=== PATIENT | female | born 1975 | race Caucasian/White ===

== ENCOUNTER 2021-04-04 22:11 | Emergency (ER) | payer OTHER ==
[~2021-04-04 22:11] MED LIST: ATORVASTATIN CA20 MG PO; BISOPROLOL FUMAR5 MG PO; CLARITIN10 MG PO; METFORMIN HCL500 MG PO; OZEMPIC1 MG/0.75 SC; PERCOCET 5-3251 EACH PO; PRINIVIL10 MG PO; SANTYL15 GM TOP; TOUJEO MAX300 UNIT/1 SC
[2021-04-05] MEDS ORDERED: NORCO 5-325 TA1 EACH PO (00:18)
[2021-05-05] MEDS ORDERED: ALLEGRA ALLERG180 MG PO (09:59)
[2021-05-05] MEDS ORDERED: TRESIBA FL100 UNIT/1 SC (10:00)
[2021-05-11] MEDS ORDERED: PERCOCET 5-3251 EACH PO (07:39)
[2021-05-11] MEDS ORDERED: PRILOSEC20 MG PO (08:41)
== END 2021-04-05 00:28 | disposition home or self-care (01) ==
LOC: FER 22:11
DX: S42.254A Nondisplaced fracture of greater tuberosity of right humerus, initial encounter for closed fracture (principal); I10 Essential (primary) hypertension; E11.9 Type 2 diabetes mellitus without complications; E78.5 Hyperlipidemia, unspecified; F17.200 Nicotine dependence, unspecified, uncomplicated; Z79.899 Other long term (current) drug therapy; Z79.84 Long term (current) use of oral hypoglycemic drugs; W19.XXXA Unspecified fall, initial encounter
CPT/HCPCS: 73030; 73200; J2270

== ENCOUNTER → 2021-05-11 | Day surgery (SDC) | payer OTHER ==
[~2021-05-11] VITALS: Ht 167.6 cm; Wt 145.6 kg
[~2021-05-11] MED LIST changes: +ALLEGRA ALLERG180 MG PO; +NORCO 5-325 TA1 EACH PO; +PRILOSEC20 MG PO; +TRESIBA FL100 UNIT/1 SC
[2021-05-11 08:55] LABS: HGB 11.6 g/dl (12.5-16.0); MCH 26.9 pg (25.0-31.0); MCHC 31.4 g/dL (32.0-36.0); MCV 85.6 fL (78.0-100.0); MPV 10.3 fL (6.0-9.5); RBC 4.32 M/uL (4.20-5.40); RDW 14.6 % (11.5-14.0); WBC 9.4 K/uL (4.0-10.5)
[2021-05-11 09:14] LABS: ALBUMIN 3.1 g/dL (3.4-5.0); BILIRUBIN - TOTAL 0.1 mg/dL (0.2-1.0); BUN/CREAT RATIO (CALC) 16.3 RATIO; CREATININE 0.43 mg/dL (0.51-0.95); GLOBULIN (CALCULATION) 3.6 g/dL; POTASSIUM 3.8 mmol/L (3.5-5.1); TOTAL PROTEIN 6.7 g/dL (6.4-8.2)
== END | disposition home or self-care (01) ==
LOC: FAS 08:02
PROVIDERS: Orthopaedic Surgery
DX: M19.011 Primary osteoarthritis, right shoulder (principal); M75.111 Incomplete rotator cuff tear or rupture of right shoulder, not specified as traumatic; M75.01 Adhesive capsulitis of right shoulder; M25.811 Other specified joint disorders, right shoulder; I10 Essential (primary) hypertension; F17.290 Nicotine dependence, other tobacco product, uncomplicated; E78.00 Pure hypercholesterolemia, unspecified; Z79.891 Long term (current) use of opiate analgesic; Z79.899 Other long term (current) drug therapy
CPT/HCPCS: 36415; 71045; 80053; 82962; 93005; J0171; J0690; J1100; J1885; J2250; J2405; J2704; J2710; J2795; J3010; J7120